=== PATIENT | female | born 1970 ===

== ENCOUNTER 2018-04-27 12:01 | Outpatient (CLI) | payer OTHER ==
[~2018-04-27] VITALS: Ht 167.6 cm; Wt 127.0 kg
== END 2018-04-27 14:16 | disposition home or self-care (01) ==
LOC: OFIC 805 12:01
DX: J31.0 Chronic rhinitis (principal); J34.2 Deviated nasal septum; H93.12 Tinnitus, left ear; R49.8 Other voice and resonance disorders; J37.0 Chronic laryngitis

== ENCOUNTER 2018-11-21 15:04 | Outpatient (CLI) | payer OTHER ==
[~2018-11-21] VITALS: Ht 152.4 cm; Wt 129.3 kg
== END 2018-11-21 15:20 | disposition home or self-care (01) ==
LOC: OFIC 805 15:04
DX: J37.0 Chronic laryngitis (principal); J04.0 Acute laryngitis; R49.0 Dysphonia

== ENCOUNTER 2019-05-10 10:42 | Outpatient (CLI) | payer OTHER ==
[~2019-05-10] VITALS: Ht 152.4 cm; Wt 127.0 kg
[2019-05-10] MEDS ORDERED: MELATONIN10 M2 PO (13:41)
== END 2019-05-10 11:15 | disposition home or self-care (01) ==
LOC: OFIC 805 10:42
DX: J31.0 Chronic rhinitis (principal); H93.12 Tinnitus, left ear; J37.0 Chronic laryngitis; J04.0 Acute laryngitis

== ENCOUNTER 2020-03-25 13:39 | Outpatient (CLI) | payer OTHER ==
[~2020-03-25 13:39] MED LIST: MELATONIN10 M2 PO
== END 2020-03-25 17:39 | disposition home or self-care (01) ==
LOC: OFIC 805 13:39
PROVIDERS: ATTEND Otolaryngology Otology & Neurotology
DX: J31.0 Chronic rhinitis (principal); J37.0 Chronic laryngitis; R49.0 Dysphonia; R04.0 Epistaxis

== ENCOUNTER 2020-04-08 11:55 | Outpatient (CLI) | payer OTHER | END 2020-04-08 12:30 | disposition home or self-care (01) | LOC: OFIC 805 11:55 | PROVIDERS: ATTEND Otolaryngology Otology & Neurotology | DX: R49.0 Dysphonia (principal); J04.0 Acute laryngitis; J37.0 Chronic laryngitis; R04.0 Epistaxis ==

== ENCOUNTER 2020-10-14 10:47 | Outpatient (CLI) | payer OTHER | END 2020-10-14 14:46 | disposition home or self-care (01) | LOC: NUCLEAR 10:47 | PROVIDERS: ATTEND Internal Medicine Geriatric Medicine | DX: I48.91 Unspecified atrial fibrillation (principal) ==